=== PATIENT | male | born 1955 | race Caucasian/White ===

== ENCOUNTER 2017-02-11 19:17 | Inpatient (IN) | payer BC ==
[2017-02-11] VITALS (8 sets, daily range): BP systolic 111–160; BP diastolic 79–91
[~2017-02-11] VITALS: Ht 182.9 cm; Wt 125.6 kg
[2017-02-11 19:33] LABS: BASOPHIL COUNT 0.1 K/uL (0-0.1); EOSINOPHIL (%) 2.4 % (0-5); EOSINOPHIL COUNT 0.3 K/uL (0-0.3); HEMATOCRIT 39.9 % (38.0-50.0); IMMATURE GRANULOCYTE (%) 0.4 % (0.0-0.7); INSTRUMENT ABS NEUTROPHIL CT 6.1 K/uL; LYMPHOCYTE COUNT 3.8 K/uL (1.0-2.8); MCH 29.8 PG (29.0-34.0); MCHC 34.1 G/DL (30.0-36.0); MCV 87.3 FL (86-99); MEAN PLAT.VOLUME 9.3 uM^3 (9.0-12.4); MONOCYTE (%) 10.2 % (3-12); MONOCYTE COUNT 1.2 K/uL (0-0.8); NEUTROPHIL (%) 53.2 % (45-76); NEUTROPHIL COUNT 6.1 K/uL (1.8-6.4); PLATELET COUNT 192 K/uL (156-360); RBC DIS.WIDTH-CV 13.2 % (11.8-14.6); RBC DIS.WIDTH-SD 41.5 % (39-53); RED BLOOD COUNT 4.57 M/uL (4.00-5.50); WHITE BLOOD COUNT 11.4 K/uL (4.1-10.2)
[2017-02-11 19:42] LABS: AMYLASE 138 IU/L (1-118); CHLORIDE 105 mEq/L (99-109); POTASSIUM 4.6 mEq/L (3.7-5.4); SODIUM 140 mEq/L (136-147)
[2017-02-11 19:44] LABS: GLUCOSE 124 mg/dL (70-99)
[2017-02-11 19:45] LABS: ANION GAP 12 MEQ/L (2-14)
[2017-02-11 19:46] LABS: PROTHROMBIN TIME 10.6 (9.2-11.2); PTT 25.3 (25-32)
[2017-02-11] MEDS ORDERED: PROZAC40 MG PO (19:46)
[2017-02-11] MEDS ORDERED: LISINOPRIL5 MG PO (19:46)
[2017-02-11] MEDS ORDERED: LUMIGAN 0.50 DROP/22 BOTH EYES (19:46)
[2017-02-11] MEDS ORDERED: GLUCOPHAGE1000 MG PO (19:46)
[2017-02-11 19:47] LABS: SERUM ETHYL ALCOHOL < 10 mg/dL
[2017-02-11] MEDS ORDERED: METOPROLOL TART25 MG PO (19:47)
[2017-02-11 19:48] LABS: GFR ESTIMATE (CALCULATED) > 59 mL/min/
[2017-02-11 19:49] LABS: UREA NITROGEN (BUN) 15 mg/dL (9-23)
[2017-02-11 19:51] LABS: LIPASE 393 U/L (1.0-51.0)
[2017-02-11 19:55] LABS: TROP-I INTERPRETATION NEGATIVE; TROPONIN-I 0.02 ng/mL (0.0-0.30)
[2017-02-11 22:53] LABS: POINT-OF-CARE METER ID UU13113731
[2017-02-11 23:23] LABS: METH RESISTANT S AUREUS PCR NEGATIVE (NEGATIVE)
[2017-02-11 23:26] LABS: PROBE CHECK PASS; SPECIMEN PROCESSING CONTROL PASS
[2017-02-12] VITALS (21 sets, daily range): BP systolic 116–173; BP diastolic 74–95
[2017-02-12 00:56] LABS: CREATINE KINASE 585 IU/L (1-294); TOTAL CK 585 IU/L (1-294)
[2017-02-12 01:03] LABS: CK-MB 47.2 ng/mL (0.0-4.9)
[2017-02-12 01:17] LABS: TROP-I INTERPRETATION POSITIVE; TROPONIN-I 18.51 ng/mL (0.0-0.30)
[2017-02-12 05:02] LABS: EOSINOPHIL (%) 2.8 % (0-5); EOSINOPHIL COUNT 0.2 K/uL (0-0.3); HEMATOCRIT 36.5 % (38.0-50.0); IMMATURE GRANULOCYTE (%) 0.5 % (0.0-0.7); INSTRUMENT ABS NEUTROPHIL CT 4.6 K/uL; LYMPHOCYTE COUNT 2.8 K/uL (1.0-2.8); MCH 30.1 PG (29.0-34.0); MCHC 34.2 G/DL (30.0-36.0); MEAN PLAT.VOLUME 9.5 uM^3 (9.0-12.4); MONOCYTE (%) 9.9 % (3-12); MONOCYTE COUNT 0.8 K/uL (0-0.8); NEUTROPHIL COUNT 4.6 K/uL (1.8-6.4); PLATELET COUNT 163 K/uL (156-360); RBC DIS.WIDTH-CV 13.3 % (11.8-14.6); RBC DIS.WIDTH-SD 43.2 % (39-53); RED BLOOD COUNT 4.15 M/uL (4.00-5.50); WHITE BLOOD COUNT 8.5 K/uL (4.1-10.2)
[2017-02-12 05:14] LABS: CHLORIDE 106 mEq/L (99-109); SODIUM 137 mEq/L (136-147)
[2017-02-12 05:15] LABS: GLUCOSE 107 mg/dL (70-99)
[2017-02-12 05:17] LABS: ANION GAP 10 MEQ/L (2-14)
[2017-02-12 05:19] LABS: GFR ESTIMATE (CALCULATED) > 59 mL/min/
[2017-02-12 05:20] LABS: UREA NITROGEN (BUN) 12 mg/dL (9-23)
[2017-02-12 05:22] LABS: CREATINE KINASE 600 IU/L (1-294); TOTAL CK 600 IU/L (1-294)
[2017-02-12 05:28] LABS: CK-MB 50.9 ng/mL (0.0-4.9)
[2017-02-12 05:37] LABS: TROP-I INTERPRETATION POSITIVE; TROPONIN-I 21.78 ng/mL (0.0-0.30)
[2017-02-12 06:42] LABS: HDL CHOLESTEROL 26 MG/DL (Desirable>=40); LDL CHOLESTEROL 54 mg/dL (Desirable<100); NON-HDL CHOLESTEROL 129 mg/dL (Desirable<160); TOTAL CHOLESTEROL 155 mg/dL (Desirable<200); TRIGLYCERIDES 375 MG/DL (Normal: <150)
[2017-02-12 07:18] LABS: Estimated Average Glucose 157 mg/dL (70-123); HEMOGLOBIN A1c (GLYCOHEMOGLOB) 7.1 % HGB (Below 5.7)
[2017-02-12 08:49] LABS: POINT-OF-CARE METER ID UU13113803
[2017-02-12 12:44] LABS: POINT-OF-CARE METER ID UU13113803
[2017-02-12 13:23] LABS: CK-MB 34.8 ng/mL (0.0-4.9); TROP-I INTERPRETATION POSITIVE; TROPONIN-I 10.68 ng/mL (0.0-0.30)
[2017-02-12 14:16] LABS: CREATINE KINASE 417 IU/L (1-294); TOTAL CK 417 IU/L (1-294)
[2017-02-12 18:16] LABS: POINT-OF-CARE METER ID UU13113803
[2017-02-12 22:06] LABS: POINT-OF-CARE METER ID UU13113803; POINT-OF-CARE USER ID 609231305
[2017-02-13] VITALS (11 sets, daily range): BP systolic 104–149; BP diastolic 66–92
[2017-02-13 06:51] LABS: GFR ESTIMATE (CALCULATED) > 59 mL/min/; UREA NITROGEN (BUN) 12 mg/dL (9-23)
[2017-02-13 08:51] LABS: POINT-OF-CARE METER ID UU13113748
[2017-02-13] MEDS ORDERED: BRILINTA90 MG PO (12:17)
[2017-02-13] MEDS ORDERED: NITROSTAT0.4 MG SL (12:17)
[2017-02-13] MEDS ORDERED: ASPIR-LOW81 MG PO (12:17)
[2017-02-13] MEDS ORDERED: ATORVASTATIN CA80 MG PO (12:17)
[2017-02-13 12:38] LABS: POINT-OF-CARE METER ID UU13113803
== END 2017-02-13 14:05 | disposition home or self-care (01) | DRG 249 ==
LOC: EME 19:17 → CATH 19:50 → 4WEST 21:56
PROVIDERS: Emergency Medicine; Internal Medicine Cardiovascular Disease; Internal Medicine Critical Care Medicine
PROC: B2151ZZ Fluoroscopy of Left Heart using Low Osmolar Contrast (ICD-10-PCS; principal; 2017-02-11)
PROC: 4A023N7 Measurement of Cardiac Sampling and Pressure, Left Heart, Percutaneous Approach (ICD-10-PCS; principal; 2017-02-11)
PROC: B2111ZZ Fluoroscopy of Multiple Coronary Arteries using Low Osmolar Contrast (ICD-10-PCS; principal; 2017-02-11)
PROC: 02703DZ Dilation of Coronary Artery, One Artery with Intraluminal Device, Percutaneous Approach (ICD-10-PCS; principal; 2017-02-11)
DX: I21.11 ST elevation (STEMI) myocardial infarction involving right coronary artery (principal); I25.82 Chronic total occlusion of coronary artery; Z68.37 Body mass index [BMI] 37.0-37.9, adult; E11.9 Type 2 diabetes mellitus without complications; E78.5 Hyperlipidemia, unspecified; I10 Essential (primary) hypertension; I25.10 Atherosclerotic heart disease of native coronary artery without angina pectoris; Z79.84 Long term (current) use of oral hypoglycemic drugs; Z79.899 Other long term (current) drug therapy; Z87.891 Personal history of nicotine dependence; E66.9 Obesity, unspecified
CPT/HCPCS: 71010; 80048; 80061; 81003; 82150; 82550; 82550 91; 82553; 82565; 82948; 83036; 83690; 84484; 84520; 85025; 85347; 85610; 85730; 86900; 86901; 87641; 93005; 99281; 99285; C1725; C1769; C1874; C1887; G0480; J0461; J1644; J1815; J2250; J2405; J3010; J3246; J7030